=== PATIENT | female | born 1970 | race African-American/Black ===

== ENCOUNTER → 2016-11-15 | Outpatient (CLI) | payer OTHER ==
[~2016-11-15] MED LIST: ADVAIR 1001 DISK W/D PO; ADVAIR 2501 DISK W/D; ALBUTEROL0.83 MG/ML IH; ALBUTEROL17 GM; ALBUTEROL17 GM INH; AMLODIPINE BESY10 MG PO; BP MED; DIAMOX SEQUELS500 MG PO; DULERA 100 MCG/13 GM INH; EC-NAPROSYN500 MG PO; HCTZ PO; HEARTBURN150 MG PO; IBUPROFEN800 MG PO; LISINOPRIL-HCTZ1 T14 PO; LISINOPRIL-HCTZ1 T19 PO; LISINOPRIL-HCTZ1 T20 PO; LOTREL 10/20 MG1 CAP; LOTREL PO; METOPROLOL SUCC25 MG PO; PERCOCET 51 UDTAB 5/ PO; SYMBICORT80 INH; VICODIN 5/500 T1 TAB PO; VITAMIN C500 M1 PO; ZESTORETIC 20-1 EAC1 PO; ZOLOFT50 MG PO; ZYVOX600 MG PO
== END | disposition home or self-care (01) ==
LOC: CBAR 09:05
DX: Z01.812 Encounter for preprocedural laboratory examination (principal); E66.01 Morbid (severe) obesity due to excess calories
CPT/HCPCS: 36415; 84443; 86677; G0463

== ENCOUNTER → 2016-12-30 | Outpatient (CLI) | payer OTHER ==
--- NOTE | ~2016-12-30 | CR97 ---
[facility] A Service of [facility] & [facility] RADIOLOGY TEXT RESULTS PATIENT: ALIZA RAMIREZ I LOCATION: [facility] : 70 UNIT #: [id number] AGE: [address]: Jarrett Dan III, MD SEX: F ORDER DR: [id number] [facility] [address] [place], [place] [address] [id number] O MR#: [id number] Acc #: [id number] NAME: ALIZA RAMIREZ I. : 1970 SEX: F STUDY DATE/TIME: 12/30/2016 8:41 UNIT: [facility] ROOM: STUDY DESCRIPTION: CR Esophagram Attending Physician: Jarrett Dan III, M.D. Referring Physician: Jarrett Dan III, M.D. Ordering Physician: Jarrett Dan III, M.D. Primary Care Physician: Zoltan Conley M.D. MEDICAL IMAGING REPORT This report is preliminary unless electronic signature is present EXAM Barium esophagram HISTORY Preop lap band surgery, morbid obesity. FINDINGS Under fluoroscopic control barium was administered p.o. Swallowing was normal. Esophagus was normal in course, caliber, mucosal pattern and distensibility. CONCLUSION Normal. Dictated by... Denis Kauffman M.D. THIS IS AN ELECTRONICALLY VERIFIED REPORT Denis Kauffman M.D. at 01/01/2017 9:17 AM Kiya TD: 12/30/2016 16:12 JOB #: [id number] MEDICAL IMAGING REPORT Page 1 of 1 COPY
--- NOTE | ~2016-12-30 | EKG ---
PATIENT: ALIZA RAMIREZ UNIT #: [id number] Ventricular Rate: 62 BPM Atrial Rate: 62 BPM P-R Interval: 140 ms QRS Duration: 82 ms Q-T Interval: 408 ms QTC Calculation(Bezet): 414 ms P [place]: 49 degrees Calculated R [place]: 35 degrees Calculated T [place]: 31 degrees Diagnosis Line: Sinus rhythm with marked sinus arrhythmia Diagnosis Line: Otherwise normal ECG Diagnosis Line: When compared with ECG of 02-SEP-2010 10:01, Diagnosis Line: No significant change was found Diagnosis Line: Confirmed by JANIE HAWK MD ([id number]) on 01/01/2017 Diagnosis Line: 4:22:55 PM INTERPRETING MD: CARINE GARCIA
--- NOTE | ~2016-12-30 | CR63 ---
[facility] A Service of [facility] & [facility] RADIOLOGY TEXT RESULTS PATIENT: ALIZA RAMIREZ I LOCATION: [facility] : 70 UNIT #: [id number] AGE: [address]: Jarrett Dan III, MD SEX: F ORDER DR: [id number] [facility] [address] [place], [place] [address] [id number] O MR#: [id number] Acc #: [id number] NAME: ALIZA RAMIREZ I. : 1970 SEX: F STUDY DATE/TIME: 12/30/2016 7:50 UNIT: [facility] ROOM: STUDY DESCRIPTION: CR Chest 2 View Attending Physician: Jarrett Dan III, M.D. Referring Physician: Jarrett Dan III, M.D. Ordering Physician: Jarrett Dan III, M.D. Primary Care Physician: Zoltan Conley M.D. MEDICAL IMAGING REPORT This report is preliminary unless electronic signature is present EXAM Chest, 12/30/2016, [facility]. HISTORY 46-year-old woman preop clearance for laparoscopic adjustable gastric band placement and possible paraesophageal hernia repair. Morbid obesity. COMPARISON 06/13/2014 FINDINGS Two-view chest demonstrates normal cardiac size and configuration. Hilar structures and mediastinal contours are preserved. Bilateral lungs are expanded and clear. Large body habitus noted. IMPRESSION Negative chest. Large body habitus. Dictated by... Jarad Prescott M.D. THIS IS AN ELECTRONICALLY VERIFIED REPORT Jarad Prescott M.D. at 12/30/2016 11:15 AM KAN/samreen TD: 12/30/2016 10:27 JOB #: [id number] MEDICAL IMAGING REPORT Page 1 of 1 COPY
[2016-12-30 09:07] LABS: HEMATOCRIT 40.2 % (35.0-45.0); HEMOGLOBIN 12.6 gm/dL (12.0-16.0); MEAN CELL VOLUME 72.9 FL (83-96); MEAN CORPUSCULAR HEMOGLOBIN 22.8 PG (28-34); MEAN CORPUSCULAR HGB CONC 31.3 g/dL (30-36); MEAN PLATELET VOLUME 6.9 FL (6.5-11.5); RED BLOOD COUNT 5.52 X10e (3.90-5.30); WHITE BLOOD COUNT 7.5 X10e3 (4.0-10.5)
[2016-12-30 09:57] LABS: ALBUMIN SERUM 3.6 g/dL (3.5-5.0); BILIRUBIN,TOTAL 0.4 mg/dL (0.2-2.0); BUN/CREATININE RATIO 13.75; CALCIUM SERUM 9.1 mg/dL (8.4-10.2); CREATININE SERUM 0.8 mg/dL (0.6-1.4); GLOM FILT RATE Estimated 102.6 mL/min (>60); POTASSIUM 4.3 mmol/L (3.5-5.1); PROTEIN TOTAL SERUM 6.9 g/dL (6.0-8.3)
== END | disposition home or self-care (01) ==
LOC: CRAD 07:41 → CAMB 08:30
PROVIDERS: Surgery
DX: Z01.818 Encounter for other preprocedural examination (principal); E66.01 Morbid (severe) obesity due to excess calories
CPT/HCPCS: 36415; 71020; 74220; 80053; 80061; 84443; 85027; 93005

== ENCOUNTER → 2017-01-11 | Day surgery (SDC) | payer OTHER ==
--- NOTE | ~2017-01-11 | OR ---
Unit #: [id number] #: [id number] Patient: ALIZA RAMIREZ I [id number] [facility] [address] [place], [place] [address] [id number] O MR#: [id number] NAME: ALIAZ RAMIREZ ROOM: Date of Procedure: 01/11/2017 Admission Date: 01/11/2017 Surgeon: Jarrett Dan III, M.D. : 1970 Attending Physician: Jarrett Dan III, M.D. Primary Care Physician: Zoltan Conley M.D. OPERATIVE REPORT PREOPERATIVE DIAGNOSIS Chronic morbid obesity. POSTOPERATIVE DIAGNOSIS Chronic morbid obesity. SECONDARY DIAGNOSIS Anterior paraesophageal hernia. PROCEDURES PERFORMED Laparoscopic adjustable gastric banding (AP large with regular port) and laparoscopic paraesophageal hernia repair. She also underwent extensive lysis of adhesions of greater than 30 minutes. GROUP UNDERWRITER Luis Castellon M.D. SPECIMENS None. COMPLICATIONS None apparent. ESTIMATED BLOOD LOSS Minimal. INDICATIONS FOR PROCEDURE This is a 45-year-old lady, who has chronic morbid obesity with a BMI of 53. She has associated comorbidities of hypertension. She has been through the bariatric program at [facility] and understands the risks and benefits of the procedure. She has also undergone a prior gallbladder surgery with a missed bowel injury that required exploratory laparotomy and she had extensive adhesions from this. DESCRIPTION OF PROCEDURE After consent was obtained, including the risks and benefits of slippage, erosion, port dysfunction, and possible failure of weight loss due to noncompliance, the patient was taken to the operating room and placed in the supine position. General anesthetic was administered and the abdomen was prepped and draped in standard surgical fashion. I began by making a 2 cm incision just above and to the left of the Unit #: [id number] #: [id number] Patient: ALIZA RAMIREZ I umbilicus. I used a Visiport to enter the peritoneal cavity without any difficulty. C02 pneumoperitoneum was then established. Next, I placed a 5 mm port in the right upper quadrant, a 5 mm Calin liver retractor in the subxiphoid region to provide exposure of the gastroesophageal junction. Next, a 10 mm port was placed in the left upper quadrant and a 5 mm port was placed in the left lateral subcostal region. I began by performing an examination of the GE junction to evaluate for a hiatal hernia. We then scored the peritoneal attachments overlying the angle of His. I then opened up the clear space in the gastrohepatic ligament, and then using 2 blunt graspers, I identified the small fat pad crossing over the right crura. I swept the fat anterior to the crura off the crura and using the pars flaccida, I created a retrogastric tunnel where the blunt grasper exited at the angle of His. Once I had made this tunnel safely, I then inserted an Allergan AP band into the abdominal cavity. This adjustable gastric band was then place around the upper part of the stomach and fastened and buckled anteriorly. We then tacked the lateral fundus over the band to the proximal pouch with 2 interrupted 0 Ethibond sutures. I then used a third stitch to imbricate the excess anterior stomach by going from the lesser curvature up towards where the last stitch was placed. We then had excellent hemostasis. I removed the Calin liver retractor. We then removed the port tubing through the initial port incision. The rest of the ports were removed, and the pneumoperitoneum was released. I then left a small tail on the tubing. We then attached the port to the excess band tubing. We placed a piece of Prolene mesh along the back side of the port and used a Prolene stitch to anchor this mesh in place. We then trimmed the excess mesh so that just a small footprint of mesh was in place behind the port. I then inserted the tubing back into the abdominal cavity, and we placed the port into a small pocket that was made just inferior to where our initial port incision was made. The mesh was in direct contact with the fascia, and this will scar in place to hold the port in place. We then injected all the port sites with 0.25% plain Marcaine, and I reapproximated the skin edges with interrupted 4-0 Vicryl subcuticular sutures. Steri-strips were then applied. The patient tolerated the procedure without any problems and returned to the recovery room in stable condition. ADDENDUM After initial entry into the abdominal cavity, she was noted to have severe adhesions in the left upper quadrant as well as along the midline. Likely, I had good entry access, but after placement of my second port in the left lateral subcostal region, I performed both sharp and blunt dissection and was able to dissect out enough space to get in the other trocar, so that I could complete the case safely. Again, this dissection took at least 30 minutes. She was then noted to have medium size anterior paraesophageal hernia. I scored the phrenoesophageal ligament, reduced the hernia defect completely including the hernia sac and after identifying both the right and left crura, I reapproximated the defect with an interrupted 0 Ethibond [id number]-[id number] suture. I then proceeded with the case as listed above. Dictated by... Jarrett Dan III, M.D. VCL/guy Unit #: [id number] #: [id number] Patient: ALIZA RAMIREZ I TD: 01/11/2017 15:53 JOB #: [id number] OPERATIVE REPORT Page 1 of 1 X Jarrett Dan III, MD PROCEDURE OPERATIVE NOTE
--- NOTE | ~2017-01-11 | CR7 ---
[facility] A Service of [facility] & [facility] RADIOLOGY TEXT RESULTS PATIENT: ALIZA RAMIREZ I LOCATION: [facility] : 70 UNIT #: [id number] AGE: [address]: Jarrett Dan III, MD SEX: F ORDER DR: [id number] [facility] [address] [place], [place] [address] [id number] O MR#: [id number] Acc #: [id number] NAME: ALIZA RAMIREZ I. : 1970 SEX: F STUDY DATE/TIME: 01/11/2017 8:56 UNIT: [facility] ROOM: STUDY DESCRIPTION: CR Abdomen Single AP View Attending Physician: Jarrett Dan III, M.D. Ordering Physician: Jarrett Dan III, M.D. Primary Care Physician: Zoltan Conley M.D. MEDICAL IMAGING REPORT This report is preliminary unless electronic signature is present EXAM KUB. HISTORY Postop lap-band surgery. TECHNIQUE Single view the abdomen was obtained. FINDINGS Postoperative changes of lap-band surgery are noted. The angle of the band with respect to the long axis of the spine is 70 degrees. The bowel gas pattern is normal. IMPRESSION Satisfactory postoperative appearance. STAT * RESULT Dictated by... Bret Cohn M.D. THIS IS AN ELECTRONICALLY VERIFIED REPORT Bret Cohn M.D. at 01/12/2017 10:23 AM LESLEY/ruben TD: 01/11/2017 10:11 JOB #: [id number] MEDICAL IMAGING REPORT Page 1 of 1 COPY
== END | disposition home or self-care (01) ==
LOC: CSUR 06:18
DX: E66.01 Morbid (severe) obesity due to excess calories (principal); K44.9 Diaphragmatic hernia without obstruction or gangrene; K66.0 Peritoneal adhesions (postprocedural) (postinfection); I10 Essential (primary) hypertension; K21.9 Gastro-esophageal reflux disease without esophagitis; M19.90 Unspecified osteoarthritis, unspecified site; J45.909 Unspecified asthma, uncomplicated; E78.5 Hyperlipidemia, unspecified; G43.909 Migraine, unspecified, not intractable, without status migrainosus; Z68.43 Body mass index [BMI] 50.0-59.9, adult; Z87.01 Personal history of pneumonia (recurrent); Z87.891 Personal history of nicotine dependence; Z91.018 Allergy to other foods; Z79.51 Long term (current) use of inhaled steroids; Z79.899 Other long term (current) drug therapy; Z90.49 Acquired absence of other specified parts of digestive tract; Z98.890 Other specified postprocedural states
CPT/HCPCS: 74000; 84703; C1781; J0330; J0690; J1650; J1885; J2250; J2370; J2405; J2710; J3010; L8699